=== PATIENT | female | born 1950 | race Caucasian/White ===

== ENCOUNTER 2022-11-19 07:29 | Outpatient (CLI) | payer SELFPAY | END 2022-11-19 07:30 | disposition home or self-care (01) | PROVIDERS: PCP Family Medicine; Visit Provider Family Medicine | DX: M54.50 Low back pain, unspecified (principal); M51.26 Other intervertebral disc displacement, lumbar region; M51.36 Other intervertebral disc degeneration, lumbar region | CPT/HCPCS: 62323; J0702; Q9966 ==

== ENCOUNTER 2023-05-13 13:29 | Outpatient (CLI) | payer OTHER, SELFPAY | END 2023-05-13 13:30 | disposition home or self-care (01) | LOC: NFLDREF 13:32 | PROVIDERS: PCP Family Medicine; Visit Provider Family Medicine | DX: Z01.818 Encounter for other preprocedural examination (principal) | CPT/HCPCS: 80048 ==

== ENCOUNTER 2023-05-27 12:42 | Outpatient (RCR) | payer OTHER, SELFPAY | END 2023-09-24 23:59 | disposition home or self-care (01) | PROVIDERS: PCP Family Medicine; Visit Provider Orthopaedic Surgery Sports Medicine | DX: M16.11 Unilateral primary osteoarthritis, right hip (principal); Z96.641 Presence of right artificial hip joint; M62.81 Muscle weakness (generalized); R26.2 Difficulty in walking, not elsewhere classified; M25.551 Pain in right hip; M25.651 Stiffness of right hip, not elsewhere classified; Z47.1 Aftercare following joint replacement surgery; Z51.89 Encounter for other specified aftercare | CPT/HCPCS: 97110; 97161 ==

== ENCOUNTER 2023-06-11 07:08 | Day surgery (SDC) | payer OTHER, SELFPAY ==
[2023-06-11] VITALS (22 sets, daily range): BP systolic 114–147; BP diastolic 57–83; PULSE 65–92; RESP 12–18; TEMP 35.7–36.6; O2SAT 89–98; BMI 32.9
[2023-06-11] MEDS: ACETAMINOPHEN 500 MG TABLET 1000 MG PO ×3 (07:47→18:32)
[2023-06-11] MEDS: SODIUM CHLORIDE 0.9 % (FLUSH) 10 ML SYRINGE IVF (07:48)
[2023-06-11] MEDS: OXYCODONE (CR) 10 MG TAB.ER.12H PO (07:48)
[2023-06-11] MEDS: LACTATED RINGERS 1000 ML 1,000 ML 100 ML IV (07:48)
--- NOTE | 2023-06-11 08:45 | XR_ITS ---
Patient: DAVE HEARD Facility:?[facility] Patient ID:?[id number] Site Patient ID:?[id number]. Site :?[id number] Study:?XRay-Hip Right TOTAL HIP, AA-06/11/2023 10:40:05 AM Ordering Physician:CANDELARIO Final Report: Indication: Hip replacement surgery Technique: AP hip fluoroscopic image. Fluoroscopy time 41.0 seconds. Findings/Impression: Hardware from a right total hip arthroplasty is in satisfactory position. Dictated by Matt Matthews MD @ 06/12/2023 9:25:00 AM Signed by:?Matt Matthews MD @06/12/2023 9:25:00 AM (Electronic Signature)
--- NOTE | 2023-06-11 08:45 | W.PM.H&PU ---
History & Physical Update History & Physical Update H&P Reviewed and patient assessed: No changes noted
--- NOTE | 2023-06-11 08:47 | XR_ITS ---
Patient: DAVE HEARD Facility:?[facility] Patient ID:?[id number] Site Patient ID:?[id number]. Site :?[id number] Study:?XRay-Hip Right 2 VIEW POSTOP-06/11/2023 11:48:00 AM Ordering Physician:CANDELARIO Final Report: Indication: Postop Technique: AP hip centered pelvis and lateral view right hip Findings/Impression: Hardware from a right total hip arthroplasty is in satisfactory position. Bone alignment is normal. No sign of acute fracture. Postop changes are within normal limits. Dictated by Matt Matthews MD @ 06/12/2023 9:32:52 AM Signed by:?Matt Matthews MD @06/12/2023 9:32:52 AM (Electronic Signature)
[2023-06-11] MEDS: TRANEXAMIC ACID 100 MG/ML INJ 1000 MG IV (09:16)
[2023-06-11] MEDS: CEFAZOLIN 2 GM in 0.9 % SODIUM CHLORIDE Mini-bag 100 ML IVPB ×3 (09:16→23:29)
--- NOTE | 2023-06-11 10:28 | P.ORPRC_ITS ---
Procedure Note Date of procedure: 06/11/23 Procedure: PREOPERATIVE DIAGNOSIS: 1. Right hip osteoarthritis, severe, primary POSTOPERATIVE DIAGNOSIS: 1. Right hip osteoarthritis, severe, primary PROCEDURE: 1. Right total hip arthroplasty-anterior approach 2. 79124 - intraoperative fluoroscopy up to 1 hour. SURGEON: Kyree Hall MD. COSMETOLOGY PROFESSOR: Navarro Mcleod PA-C; ROBERT Fontaine - Of note, a skilled dental ceramist assistant was critical for this case to aid in patient positioning, tissue retraction, limb manipulation/positioning, and closure. ANESTHESIA: General endotracheal anesthetic EBL: 600 mL IMPLANTS: DePuy J&J uncemented total hip [place] cup size 50, hole eliminator, +4 neutral liner Actis stem, standard offset, size 6 +5 mm ceramic 32mm head COMPLICATIONS: None evident INDICATIONS: The patient is a pleasant 72-year-old female who has experienced severe right hip pain and difficulty bearing weight. Workup included x-rays which revealed severe osteoarthrosis in the hip. Given the deformity, the dysfunction, and the pain, as well as the failure of nonoperative management, recommendation was made for surgery. FINDINGS: Full-thickness chondral defect femoral head and large osteophytes around the perimeter of the femoral head/neck junction and to a lesser degree acetabulum. Large effusion upon entering the joint. Significant oozing from the bone including the femur and the acetabulum following bone preparation. DESCRIPTION OF PROCEDURE: Following a thorough discussion of risks, benefits, and alternatives consent was obtained and the right hip was marked. The patient was brought to the operating room and placed supine on the operating table. Induction of anesthesia was undertaken. 2 g IV Ancef and 1 g tranexamic acid was administered within 1 hr of incision preoperatively. Proper time-out was performed identifying proper patient, site, procedure. The operative extremity was prepped and draped in the appropriate sterile fashion using ChloraPrep after the patient was positioned on the [place] table with head in neutral alignment and all bony prominences well padded. C-arm fluoroscopic imaging was utilized to confirm proper pelvis rotation and position, and to get true AP films of both the contralateral left, and the affected right hip. This is for comparison. A longitudinal incision was made starting approximately 1 cm distal to the ASIS, and 3-4 cm lateral. The incision was extended distally aiming toward the lateral border the patella. Sharp incision through skin and bovie cautery through the subcutaneous tissue allowed identification of the TFL fascia. This was sharply divided, and the fascia bluntly released from the muscle fibers as we dissected medial. Upon coming to the medial border, we were able to retract the TFL laterally, and penetrated the deeper fascia and identify the crossing circumflex vessels. These were ligated/cauterized. The rectus was elevated from the capsule, and retractors placed laterally and medially along the femoral neck to help with visualization of the capsule. We then performed an inverted T capsulotomy. The capsule was tagged for later repair. Retractors were placed inside the capsule. The femoral neck was visualized after releasing medially down to the lesser trochanter, along the saddle laterally, and up onto the acetabulum. The femoral neck cut was made in line with our preoperative templating. The head was removed in a single piece, and sized. We turned our attention to acetabular preparation. Initially, the labrum was resected from around the perimeter, the pulvinar was excised, allowing us to visualize the false wall. We started the reaming with a 43 mm reamer. This was medialized down to the true wall. We then enlarged our reamers sequentially up to one size less than the selected cup size. We trialed at the same size and found it to have an excellent fit. The selected cup was then opened, inserted, and impacted in line with the goal of 40? of abduction, and 20-25? of anteversion. This was confirmed on C-arm fluoroscopic imaging to be in the appropriate/goal position. Once the cup was placed we placed a hole eliminator and a liner consistent with preop planning. Attention was turned to the femoral preparation. The limb was extended, externally rotated, and adducted. The posteromedial capsule was released, as retractors were placed allowing excellent access to the proximal femur. Initially a box sealing inspector was followed by canal finder followed by various broaches. We broached sequentially up to the size noted above, found it to have excellent rotational control, and trialing various heads and necks, revealed that appropriate neck offset, and the above noted head size provided the greatest stability, and baptism of length, and offset. C-arm fluoroscopic imaging confirmed position of the stem, as well as leg lengths, which were compared with the pre procedure all fluoroscopic images. Trial implants were removed, the real femoral stem inserted, as was the appropriate head. After reducing, the leg was placed through range of motion and stability was confirmed anterior, posterior, and lateral. A 3 min Betadine soak was then performed, and thorough irrigation with normal saline followed. Closure of the capsule was performed with #1 PDS. Bleeding was confirmed to be controlled at this stage, and the TFL fascia was closed with #0 strata fix. Subcutaneous, and subcuticular closure was performed with 2-0 Vicryl and 4-0 Monocryl, respectively. Dressings were applied, and the patient was awoken from anesthesia and transferred the PACU in stable condition. A skilled dental ceramist assistant was critical for this case to aid in patient positioning, tissue retraction, acetabular and proximal femoral exposure, limb manipulation/positioning, dislocation/relocation, patient safety, and closure. PLAN: 1. Weight bear as tolerated operative extremity. 2. 23 hr perioperative antibiotics. 3. Ice. 4. PT/OT consults for ambulation assistance/mobility education. 5. Social work consult for discharge planning. 6. DVT prophylaxis with at SCDs and Xarelto x5 days followed by aspirin for a total of 1 month..
--- NOTE | 2023-06-11 10:28 | W.PM.NB ---
Nerve Block Nerve Block Time Seen by Provider: 08:50 Date Seen: 06/11/23 Type of block requested by surgeon for post-operative analgesia: DEBBIE/LFCN Side: right Time out performed: Yes Verification of patient name: Yes Verification of date of : Yes Site marking: site marked Name of person performing procedure: [place] Continuous monitoring Was continuous monitoring of O2 sat, B/P, cardiac monitor technician, recorded every 15 minutes?: Yes Procedure Checklist: sterile prep, needles and gloves Ultrasound guided. Images saved: Yes Medications given in 5ml increments after negative aspiration: Ropivicaine %: 0.5 mL: 30 Needle gauge: 20 Decadron (mg): 10 Precedex (mcg): 25 Patient tolerated procedure well: Yes Additional comments: Needle noted below psoas tendon needle noted adjacent to LFCN Block Charges Block Charge (with Pro Fee): Other Periph Nerve Block Use of Ultrasound Machine for Block: Yes- US Guidance/pain block
--- NOTE | 2023-06-11 10:28 | W.ANESCHARGE ---
Anesthesia Charges Start Date/Time Anesthesia Start Date: 06/11/23 Anesthesia Start Time: 08:45 Stop Date/Time Anesthesia Stop Date: 06/11/23 Anesthesia Stop Time: 11:18 Summary Extremes of Age - Over 70 or under 1: MDA
--- NOTE | 2023-06-11 11:19 | W.ANESCHARGE ---
Anesthesia Charges Start Date/Time Anesthesia Start Date: 06/11/23 Anesthesia Start Time: 08:45 Stop Date/Time Anesthesia Stop Date: 06/11/23 Anesthesia Stop Time: 11:18
[2023-06-11] MEDS: LACTATED RINGERS 1000 ML 1,000 ML 35 ML IV (11:42)
--- NOTE | 2023-06-11 12:11 | SUR.PHASEI ---
infused 2 bags (1000ml) of LR in preop and or. 3rd bag was started in pacu and 350ml was infused during pacu.
[2023-06-11] MEDS: MULTIVITAMIN/MINERALS 1 TABLET 1 TAB PO (13:58)
[2023-06-11] MEDS: LORATADINE 10 MG TABLET PO (13:58)
[2023-06-11] MEDS: MAGNESIUM OXIDE 400 MG TABLET PO (13:59)
--- NOTE | 2023-06-11 14:41 | P.IMCN_ITS ---
Date of Consult Patient: [facility] Patient Consult date: 06/11/23 Requesting Physician: Orthopedics Primary Care Provider: Lyndon Butterfield MD Consult Narrative Reason for consult: Medical management Narrative: Carmen Ceja is a 72 year old female past medical history significant for osteoarthritis, obesity, previous bilateral knee replacement, not currently taking prescribed medications is POD#0 status post right total hip arthroplasty, . There have been no perioperative complications or nursing concerns reported. Estimated total blood loss documented as 600 ml. Updated and reviewed the active medical problems, past medical history, past surgical history, social history, allergies and medications in our electronic EMR. Postoperatively, patient is resting comfortably. Pain is adequately managed. No nausea. Review of Systems Narrative: REVIEW OF SYSTEMS: Complete review of systems performed and negative unless otherwise stated in HPI or below. PFSH PFSH Surgical History History of total bilateral knee replacement (08/07/16) ?Z96.653 - Presence of artificial knee joint, bilateral (ICD-10) H/O arthroscopy of left knee (03/17/19) ?Z98.890 - Other specified postprocedural states (ICD-10) Family History Father Colon cancer Sister Throat cancer Grandmother Heart disease Social History What is your current living situation?: I presently have a place to live Smoking Status: Never smoker How often do you have a drink containing alcohol: monthly or less How many standard drinks containing alcohol do you have on a typical day: 1 or 2 AUDIT-C Alcohol total score: 1 Non-prescribed substance use: denies use Caffeine: Yes Little interest or pleasure in doing things: not at all Feeling down, depressed, or hopeless: not at all Meds Home Medications and Allergies Home Medications Medication Instructions Recorded Confirmed Type loratadine 10 mg tablet (Claritin) 10 mg PO QDAY 05/06/23 06/11/23 History magnesium 200 mg tablet 200 mg PO QDAY 05/06/23 06/11/23 History multivitamin 1 tab PO QDAY 05/06/23 06/11/23 History vitamin B complex 1 tab PO QDAY 05/06/23 06/11/23 History Allergies Allergy/AdvReac Type Severity Reaction Status Date / Time No Known Drug Allergies Allergy Verified 06/11/23 07:29 Exam Narrative: Exam Narrative: PHYSICAL EXAM General: Pleasant, conversant, NAD HEENT: Normocephalic, atraumatic, sclera white, EOMI, oral mucosa moist Cardiovascular: RRR, S1S2. No pitting edema Pulmonary: CTA bilaterally without rhonchi, rales, expiratory wheezes. No dy spnea Abdominal: Soft, nondistended, NTTP Neurological: Alert, answering questions appropriately, cranial nerves intact, no focal findings Extremities: No gross joint deformity or swelling. Postoperative dressing in place, dry. Neurovascularly intact Skin: Warm, dry. Const: Vital Signs, click to edit/add: Vital Signs - 24 hr 06/11/23 07:33 06/11/23 11:15 06/11/23 11:20 Temperature 97.8 F 96.4 F L 96.4 F L Pulse Rate 72 76 73 Respiratory Rate 16 14 14 Blood Pressure 147/83 H 145/78 H 145/79 H Pulse Oximetry 96 95 96 Oxygen Delivery Me thod Room Air High Flow Nasal Ca nnula High Flow Nasal Ca nnula Oxygen Flow Rate 2 2 Fraction of Inspir ed Oxygen 100 100 06/11/23 11:25 06/11/23 11:30 06/11/23 11:35 Temperature 96.3 F L 96.6 F L 96.6 F L Pulse Rate 69 72 72 Respiratory Rate 14 16 16 Blood Pressure 137/78 120/72 144/76 H Pulse Oximetry 97 97 98 Oxygen Delivery Me thod High Flow Nasal Ca nnula High Flow Nasal Ca nnula High Flow Nasal Ca nnula Oxygen Flow Rate 4 4 2 Fraction of Inspir ed Oxygen 100 100 100 06/11/23 11:40 06/11/23 11:45 06/11/23 11:50 Temperature 96.8 F L 96.9 F L 97.0 F L Pulse Rate 74 71 68 Respiratory Rate 16 16 16 Blood Pressure 143/76 H 145/74 H 142/73 H Pulse Oximetry 98 96 97 Oxygen Delivery Me thod High Flow Nasal Ca nnula Room Air Room Air Oxygen Flow Rate 2 Fraction of Inspir ed Oxygen 100 06/11/23 11:55 06/11/23 12:00 06/11/23 12:15 Temperature 97.1 F L 96.4 F L 96.2 F L Pulse Rate 70 67 65 Respiratory Rate 16 16 16 Blood Pressure 131/78 114/72 129/68 Pulse Oximetry 96 89 94 Oxygen Delivery Me thod Room Air Room Air Nasal Cannula Oxygen Flow Rate 2 Fraction of Inspir ed Oxygen 06/11/23 12:30 06/11/23 12:45 06/11/23 13:00 Temperature 96.9 F L 96.8 F L 97.2 F L Pulse Rate 66 67 85 Respiratory Rate 16 18 12 Blood Pressure 129/66 124/65 133/67 Pulse Oximetry 95 96 94 Oxygen Delivery Me thod Room Air Nasal Cannula Room Air Oxygen Flow Rate 2 2 Fraction of Inspir ed Oxygen 06/11/23 13:30 06/11/23 14:00 Temperature 97.3 F L 97.4 F L Pulse Rate 66 66 Respiratory Rate 14 14 Blood Pressure 131/66 122/66 Pulse Oximetry 97 97 Oxygen Delivery Me thod Room Air Room Air Oxygen Flow Rate Fraction of Inspir ed Oxygen Assessment and Plan Assessment and plan (1) Osteoarthritis of right hip: Problem comment: -POD#0 s/p right FERNANDO -perioperative management including pain management and anticoagulation per Orthopedic surgery -encourage postoperative pulmonary hygiene -PT OT consults -plan to discharge home with family tomorrow Status: Acute Plan May resume home OTC medications/supplements upon discharge. Hospital medicine team will sign off. Please contact our service with any questions or concerns.
[2023-06-11] MEDS: OXYCODONE 5 MG TABLET PO (15:23)
--- NOTE | 2023-06-11 18:51 | PC.NURSE ---
End of Shift: Patient pleasant and cooperative. Patient vitally stable, lungs clear, BS WNL, IV running LR at 75. Patient right hip incision C/D/I. Patient has rated hip pain at most 06/10, scheduled tylenol given and 5 mg of oxy given once. Patient ambulated to toilet and chair, and currently still up in chair. Patient has not yet urinated. Patient tolerating regular diet and drinking water well. Patient has required 0.5-1 L of oxygen NC when she falls asleep, but on RA while awake.
[2023-06-11] MEDS: SENNOSIDES 1 TAB TABLET 2 TAB PO (20:46)
[2023-06-12 01:21] VITALS: BP 123/72; PULSE 95; RESP 14; TEMP 36.4; O2SAT 93
[2023-06-12] MEDS: ACETAMINOPHEN 500 MG TABLET 1000 MG PO ×2 (01:30→08:10)
--- NOTE | 2023-06-12 05:02 | PC.NURSE ---
Shift note: Pt doing well ambulating with A1, walker and GB. Tolerated regular diet well. Alert and oriented, pain level rated at 5. No PRN pain medication requested. Pt had adequate urine output, saline lock. Dressing appeared clean and dry. Ice pack applied to the incision site. Vitally stable.
[2023-06-12] MEDS: OXYCODONE 5 MG TABLET PO ×2 (06:23→11:05)
[2023-06-12 06:24] LABS: Basophils Percent Auto 0.1 % (0.0-3.0); Hematocrit 34.3 % (33.0-51.0); Immature Granulocytes Pct Auto 0.3 %; Lymphocytes Percent Auto 8.2 % (20-44); Mean Corpuscular HGB Conc 32 gm/dL (32-36); Mean Corpuscular Hemoglobin 29 pg (26-34); Mean Corpuscular Volume 90 fL (80-100); Monocytes Percent Auto 9.3 % (0.0-11.0); Neutrophils Percent Auto 82.1 % (42.0-72.0); Platelet Count* 214 K/uL (140-440); RDW Coefficient of Variation % 15.3 % (11.5-15.5); White Blood Count* 14.77 K/uL (4.50-11.00)
[2023-06-12 06:43] LABS: Slide Review Reflex No
[2023-06-12 06:46] LABS: Sodium* 137 mmol/L (135-149)
[2023-06-12 06:47] LABS: Potassium* 4.5 mmol/L (3.6-5.1)
[2023-06-12 06:49] LABS: Creatinine* 0.7 mg/dL (0.5-1.5); Est. Creatinine Clearance* 39.04; Estimated Glomerular Filt Rate 91 ml/min
[2023-06-12 06:50] LABS: Blood Urea Nitrogen* 13 mg/dL (7-30)
[2023-06-12] MEDS: SENNOSIDES 1 TAB TABLET 2 TAB PO (08:10)
[2023-06-12] MEDS: RIVAROXABAN 10 MG TABLET PO (08:10)
[2023-06-12] MEDS: MULTIVITAMIN/MINERALS 1 TABLET 1 TAB PO (08:11)
[2023-06-12] MEDS: LORATADINE 10 MG TABLET PO (08:11)
[2023-06-12 08:28] VITALS: BP 144/63; PULSE 85; RESP 16; TEMP 36.8; O2SAT 94
[2023-06-12] MEDS: MAGNESIUM OXIDE 400 MG TABLET PO (10:02)
[2023-06-12 11:45] VITALS: RESP 16; O2SAT 94
--- NOTE | 2023-06-12 11:48 | PC.NURSE ---
Discharge - Pt alert, oriented, cooperative, and pleasant. Up with standby assistance and walker/gait belt. Continent of bowel and bladder. Pt tolerating RA, regular diet, fluids. Pt reported pain in R hip as 4/10 which was reported as tolerable. Pt reported pain increased to a 7/10 after PT/OT. Medication given per MAR with pt verbalizing improvement. VSS, afebrile, dressing CDI. Ice on operative site. IV removed with catheter intact, discharge education given to pt and spouse with verbalized understanding. Pt discharged to home via wheelchair with spouse at approximately 1125.
--- NOTE | 2023-06-12 11:56 | P.ORPN_ITS ---
Subjective Subjective Date Seen: 06/12/23 Principal diagnosis: Status postop day 1, right total hip arthroplasty - anterior approach Interval history: Patient reports doing well. No acute events over night. Pain managed with scheduled and PRN medications, ice. DVT prophylaxis: Rivaroxaban, bilateral knee high Beto stockings, SCDs, walking. Denies fevers, chills, aches, N/V, CP, SOB/SMITH, or lightheadedness. Ortho Exam Narrative Exam Narrative: -Patient appears comfortable in recliner; no apparent acute distress -Alert and oriented times 3 -Operative hip swollen; soft tissues supple; no obvious erythema. Ecchymosis minimal. Warmth appropriate -Surgical dressing clean, dry, intact; no obvious drainage, no erythematous streaking peripheral to the bandage -Bilateral calves soft and supple; no significant swelling, edema, tenderness, erythema, discoloration, warmth, or palpable cords -2+ DP/PT pulses, intact dermatomes and myotomes distally (5/5 strength). Noted numbness about the lateral femoral cutaneous nerve distribution. Const Vital Signs, click to edit/add: Vital Signs - 24 hr 06/11/23 12:00 06/11/23 12:15 06/11/23 12:30 Temperature 96.4 F L 96.2 F L 96.9 F L Pulse Rate 67 65 66 Pulse Rate [Pulse Oximeter] Respiratory Rate 16 16 16 Blood Pressure 114/72 129/68 129/66 Blood Pressure [Right Arm] Pulse Oximetry 89 94 95 Oxygen Delivery Method Room Air Nasal Cannula Room Air Oxygen Flow Rate 2 2 Fraction of Inspired Oxygen 06/11/23 12:45 06/11/23 13:00 06/11/23 13:30 Temperature 96.8 F L 97.2 F L 97.3 F L Pulse Rate 67 85 66 Pulse Rate [Pulse Oximeter] Respiratory Rate 18 12 14 Blood Pressure 124/65 133/67 131/66 Blood Pressure [Right Arm] Pulse Oximetry 96 94 97 Oxygen Delivery Method Nasal Cannula Room Air Room Air Oxygen Flow Rate 2 Fraction of Inspired Oxygen 06/11/23 14:00 06/11/23 15:13 06/11/23 15:13 Temperature 97.4 F L 97.6 F Pulse Rate 66 92 Pulse Rate [Pulse Oximeter] 92 Respiratory Rate 14 14 12 Blood Pressure 122/66 116/57 L Blood Pressure [Right Arm] Pulse Oximetry 97 93 Oxygen Delivery Method Room Air Room Air Oxygen Flow Rate Fraction of Inspired Oxygen 06/11/23 15:13 06/11/23 17:00 06/11/23 18:00 Temperature 97.1 F L 97.4 F L Pulse Rate 74 74 Pulse Rate [Pulse Oximeter] Respiratory Rate 14 14 14 Blood Pressure 133/67 122/68 Blood Pressure [Right Arm] Pulse Oximetry 93 92 97 Oxygen Delivery Method Room Air Room Air Nasal Cannula Oxygen Flow Rate 1 Fraction of Inspired Oxygen 1 06/11/23 19:00 06/11/23 23:00 06/11/23 23:00 Temperature 97 F L Pulse Rate Pulse Rate [Pulse Oximeter] 81 89 Respiratory Rate 14 14 Blood Pressure Blood Pressure [Right Arm] 124/61 Pulse Oximetry 97 96 Oxygen Delivery Method Room Air Room Air Oxygen Flow Rate Fraction of Inspired Oxygen 06/11/23 23:00 06/12/23 01:21 06/12/23 08:28 Temperature 97.6 F 97.6 F 98.2 F Pulse Rate Pulse Rate [Pulse Oximeter] 89 95 85 Respiratory Rate 14 14 16 Blood Pressure Blood Pressure [Right Arm] 129/67 123/72 144/63 H Pulse Oximetry 96 93 94 Oxygen Delivery Method Room Air Room Air Room Air Oxygen Flow Rate Fraction of Inspired Oxygen 06/12/23 11:45 Temperature Pulse Rate Pulse Rate [Pulse Oximeter] Respiratory Rate 16 Blood Pressure Blood Pressure [Right Arm] Pulse Oximetry 94 Oxygen Delivery Method Room Air Oxygen Flow Rate Fraction of Inspired Oxygen Assessment and Plan Assessment and plan (1) Osteoarthritis of right hip: Problem details: -POD#1 s/p right FERNANDO -perioperative management including pain management and anticoagulation per Orthopedic surgery -encourage postoperative pulmonary hygiene -PT OT consults -plan to discharge home with family tomorrow Status: Acute Plan - Complete 23 hour perioperative antibiotics. - PT/OT consult for education and assistance. - Social work consult for discharge planning - Prescribed analgesics as needed - DVT prophylaxis: Rivaroxaban, bilateral knee high Beto Hose stockings and SCDs. No Beto socks required for home. - Anticipation is for discharge to home with spouse today, 06/12/2023 if the patient remains medically stable, pain is controlled, and they are safe with mobilization. - spoke with charge nurse and they will provide patient with incentive spir ometer. This was not ordered postoperatively. We also have outpatient PT scheduled from our clinic.
== END 2023-06-12 11:25 | disposition home or self-care (01) ==
LOC: OR 07:09 → MEDSURG 07:10
PROVIDERS: PCP Family Medicine; Visit Provider Orthopaedic Surgery Sports Medicine
PROC: (CPT 27130; principal; 2023-06-11 08:45)
DX: M16.11 Unilateral primary osteoarthritis, right hip (principal); G89.18 Other acute postprocedural pain; E66.9 Obesity, unspecified; Z68.33 Body mass index [BMI] 33.0-33.9, adult
CPT/HCPCS: 27130; 01214; 36415; 64450; 73501; 76942; 82565; 84132; 84295; 84520; 85025; 86850; 86900; 86901; 97110; 97116; 97161; 97165; 99100; A9153; A9270; C1776; J0690; J1100; J1170; J2405; J2704; J2710; J2795; J3010; J3490; J7120